=== PATIENT | female | born 1995 | race Two or more races ===

== ENCOUNTER → 2024-12-24 | Outpatient (CLI) | payer MEDICAID, SELFPAY ==
--- NOTE | 2024-12-24 13:30 | XR_ITS ---
Examination: Pelvic ultrasound, transabdominal, complete Technique: Transabdominal ultrasound of the pelvis performed using grayscale imaging Date and time of exam: December 24, 2024 1350 hours INDICATIONS: Irregular menses 18 years FINDINGS: Uterus 9.5 x 5.1 x 5.7 cm Intrauterine device satisfactory position Endometrial stripe 0.6 cm Right ovary 3.2 cm arterial flow Left ovary 3.5 cm arterial flow Mild fluid in the cul-de-sac IMPRESSION: Intrauterine device satisfactory position No uterine mass
== END | disposition home or self-care (01) ==
PROVIDERS: PCP Physician Assistant; Referring Provider Physician Assistant; Visit Provider Physician Assistant
DX: N92.6 Irregular menstruation, unspecified (principal); Z30.431 Encounter for routine checking of intrauterine contraceptive device
CPT/HCPCS: 76856